=== PATIENT | female | born 1960 | race Caucasian/White ===

== ENCOUNTER → 2016-09-27 | Outpatient (CLI) | payer MEDICAID ==
[~2016-09-27] MED LIST: GADOBUTROL 10 ML VIAL IVP ONE
--- NOTE | 2016-09-27 11:20 | MR ---
MRI Brain Without and With Contrast History: History of glioblastoma multiforme. Restaging. Technique: MRI was performed of the brain using a 3 [employer] MRI system. Sagittal, coronal, and axial im aging was obtained with standard imaging sequences. Images are obtained pre and post intravenous cont rast, 7 mL Gadavist. Comparison: July 28, 2016. Findings: Enhancing mass is seen in the right parietal lobe at the anterior margin of a surgical defe ct similar in size and appearance measuring 1.6 x 1.7 x 1.5 cm. Encephalomalacia is seen of the surgi moshe defect at the site of prior craniotomy otherwise stable in appearance. A nodular mass is seen at the anterior corpus callosum extending laterally to the left in a periventricular location in the lef t frontal lobe and also crossing midline to the right. Enhancement of the peripheral margin measures 3.3 cm x 1.5 cm x 2.2 cm similar in size to the prior exam. No new area of abnormal enhancement is vi sualized. Periventricular white matter change is seen bilaterally similar in appearance. Ventricles, sulci, and cisterns are diffusely prominent. There is smooth dural enhancement bilaterally stable in appearance . No evidence for an extraaxial fluid collection. Nonspecific fluid is seen in the right mastoid air cells. No evidence for an air-fluid level in the paranasal sinuses. Mucous membrane thickening is see n in the maxillary sinuses. Impression: 1. Peripheral enhancing nodular mass in the left anterior corpus callosum crossing midline slightly t o the right stable in size and appearance. This is compatible with glioblastoma multiforme. 2. Stable enhancing mass at the anterior margin of the right surgical site in the right parietal lobe compatible with recurrent glioblastoma. 3. Diffuse dural enhancement which is stable in appearance with no nodularity which could be from pos toperative change or less likely leptomeningeal disease.
== END ==
LOC: FIMAGING 09:47
PROVIDERS: ATTEND Internal Medicine Hematology & Oncology
DX: C71.9 Malignant neoplasm of brain, unspecified (principal)
CPT/HCPCS: A9585

== ENCOUNTER → 2016-12-06 | Outpatient (CLI) | payer MEDICAID | LOC: MERGE 07:14 → FIMAGING 07:14 | PROVIDERS: ATTEND Internal Medicine Hematology & Oncology | DX: C71.9 Malignant neoplasm of brain, unspecified (principal) | CPT/HCPCS: A9585 ==